=== PATIENT | male | born 1955 | race Caucasian/White ===

== ENCOUNTER 2018-04-11 12:38 | Inpatient (IN) | payer OTHER ==
[~2018-04-11] VITALS: Ht 167.6 cm; Wt 89.2 kg
[2018-04-11] VITALS (7 sets, daily range): BP systolic 155–205; BP diastolic 70–94
--- NOTE | ~2018-04-11 | EKG ---
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
--- NOTE | ~2018-04-11 | EKG ---
[place], [place] ELECTROCARDIOGRAM REPORT NAME: FUNMI RODRIGUEZ UNIT #: [id number] ROOM: [facility] DOCTOR: XAVI DRAFT REPORT BIRTHDATE: [birth year] 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
--- NOTE | ~2018-04-11 | EKG ---
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
[~2018-04-11 12:38] MED LIST: AMOXIL400 MG/5 M PO
[2018-04-11 13:02] LABS: BASO # 0.1 10*3/uL (0.0-0.1); BASO % 0.6 % (0.0-1.0); EOS # 0.1 10*3/uL (0.0-0.4); EOS % 1.5 % (1.0-4.0); HEMATOCRIT 44.5 % (42.0-52.0); LYMPH # 1.9 10*3/uL (1.3-4.4); LYMPH % 22.9 % (27.0-41.0); MEAN CELL VOLUME 86.9 fl (80.0-94.0); MEAN CORPUSCULAR HGB 29.3 pg (27.0-31.0); MEAN CORPUSCULAR HGB CONC 33.7 g/dl (33.0-37.0); MEAN PLATELET VOLUME 9.9 fl (9.6-12.3); MONO # 0.5 10*3/uL (0.1-1.0); MONO % 5.7 % (3.0-9.0); NEUT # 5.6 10*3/uL (2.3-7.9); NEUT % 68.9 % (47.0-73.0); PLATELET COUNT AUTOMATED 212 10*3/uL (130-400); RED BLOOD COUNT 5.12 10*6/uL (4.50-5.90); WHITE BLOOD COUNT 8.1 10*3/uL (4.8-10.8)
[2018-04-11 13:33] LABS: ALBUMIN 3.6 gm/dl (3.1-4.5); ALKALINE PHOSPHATASE 52 U/L (45-117); BUN 17 mg/dl (7-24); CHLORIDE 105 mmol/L (98-107); CREATININE 0.88 mg/dL (0.70-1.30); POTASSIUM 4.1 mmol/L (3.5-5.1); SGOT/AST 8 IU/L (3-35); SGPT/ALT 17 U/L (12-78); SODIUM 140 mmol/L (136-145); TOTAL PROTEIN 7.4 gm/dL (6.4-8.2)
[2018-04-11 13:38] LABS: TROPONIN I < 0.015 ng/ml (<0.045)
[2018-04-11 13:39] LABS: THYROID STIM HORMONE (HS) 0.679 uIU/ml (0.358-4.75)
[2018-04-11] MEDS ORDERED: LISINOPRIL40 MG PO (15:04)
[2018-04-11] MEDS ORDERED: CITALOPRAM10 MG PO (15:05)
[2018-04-11] MEDS ORDERED: METOPROLOL TART50 M1 PO (15:05)
[2018-04-11] MEDS ORDERED: OMEPRAZOLE40 MG PO (15:06)
--- NOTE | 2018-04-11 15:50 | NUR ---
A 62, admitted to 5E, under the services of KAYLI German DO with a diagnosis of HTN EMERGENCY. Chief complaint is HIGH BP, BLURRED VISION. Patient arrived via ambulatory from ER. Monitor applied. Initial assessment completed. Vital signs taken and recorded. KAYLI GERMAN DO notified of admission to the unit. Orders received. See assessment for past medical history, medications and allergies. Patient and/or family oriented to unit. [facility] visitation policy reviewed. Clothing/patient valuable form completed. SANDIE ALEXANDER
[2018-04-11 17:17] LABS: BILIRUBIN NEGATIVE (NEGATIVE); BLOOD NEGATIVE (NEGATIVE); CLARITY SL CLOUDY (CLEAR); COLOR YELLOW (YELLOW); GLUCOSE NEGATIVE (NEGATIVE); KETONE NEGATIVE (NEGATIVE); LEUKO ESTERASE NEGATIVE (NEGATIVE); NITRITE NEGATIVE (NEGATIVE); PH 6.5 (5.0-9.0); UROBILINOGEN 0.2 E.U./dl (0.2-1.0)
[2018-04-11 17:24] LABS: BACTERIA 1+; EPITHELIAL CELLS 0-2; RBC 0-2 rbc/hpf (0-2); WBC 0-2 wbc/hpf (0-5)
--- NOTE | 2018-04-11 17:30 | NUR ---
DR QURESHI MADE AWARE OF UPDATED MED REC.
--- NOTE | 2018-04-11 20:00 | NUR ---
RESTING IN BED WATCHING T.V. VOICES NO C/O AT THIS TIME. DENIES PAIN OR DISCOMFORT. CALL LIGHT WITHIN REACH.
[2018-04-12] VITALS: BP 139/73
--- NOTE | 2018-04-12 | NUR ---
RESTING IN BED WITH EYES CLOSED. CALL LIGHT WITHIN REACH.
[2018-04-12 06:12] LABS: BASO # 0.1 10*3/uL (0.0-0.1); BASO % 0.7 % (0.0-1.0); EOS # 0.2 10*3/uL (0.0-0.4); EOS % 2.3 % (1.0-4.0); HEMATOCRIT 43.1 % (42.0-52.0); HEMOGLOBIN 14.3 g/dl (14.0-18.0); LYMPH % 28.5 % (27.0-41.0); MEAN CELL VOLUME 86.7 fl (80.0-94.0); MEAN CORPUSCULAR HGB 28.8 pg (27.0-31.0); MEAN CORPUSCULAR HGB CONC 33.2 g/dl (33.0-37.0); MEAN PLATELET VOLUME 10.2 fl (9.6-12.3); MONO # 0.5 10*3/uL (0.1-1.0); MONO % 7.1 % (3.0-9.0); NEUT # 4.3 10*3/uL (2.3-7.9); NEUT % 60.8 % (47.0-73.0); PLATELET COUNT AUTOMATED 181 10*3/uL (130-400); RED BLOOD COUNT 4.97 10*6/uL (4.50-5.90); RED CELL DISTRI WIDTH 13.1 % (0-14.5); WHITE BLOOD COUNT 7.1 10*3/uL (4.8-10.8)
[2018-04-12 06:51] LABS: ALBUMIN 3.3 gm/dl (3.1-4.5); ALKALINE PHOSPHATASE 46 U/L (45-117); BUN 17 mg/dl (7-24); CHLORIDE 104 mmol/L (98-107); CHOLESTEROL 190 mg/dL (<200); CREATININE 0.85 mg/dL (0.70-1.30); FREE T4 0.98 ng/dl (0.76-1.46); HDL CHOLESTEROL 45 mg/dl (40-60); LDL CHOLESTEROL 122 mg/dL (9-159); POTASSIUM 3.7 mmol/L (3.5-5.1); SGOT/AST 4 IU/L (3-35); SGPT/ALT 15 U/L (12-78); SODIUM 139 mmol/L (136-145); TOTAL PROTEIN 6.9 gm/dL (6.4-8.2); TRIGLYCERIDES 114 mg/dl (<150); VLDL CHOLESTEROL 23 mg/dL (6-40)
[2018-04-12 07:22] LABS: VITAMIN D, 25-HYDROXY 35.2 ng/mL (30-100)
[2018-04-12 08:00] VITALS: BP 172/88
[2018-04-12 12:00] VITALS: BP 168/90; BP 180/100
--- NOTE | 2018-04-12 15:00 | NUR ---
PT RESTING IN BED, DENIES ANY COMPLAINTS. CALL LIGHT WITHIN REACH.
[2018-04-12 16:00] VITALS: BP 158/100; BP 158/88
[2018-04-12 20:00] VITALS: BP 176/96
--- NOTE | 2018-04-12 20:00 | NUR ---
REPORT OBTAINED FROM DAY SHIFT RN. PT IS SITTING UP IN BED AT THIS TIME AND DENIES ANY PAIN OR DISCOMFORT. HE DENIES ANY NEEDS. INITIAL ASSESSMENT COMPLETED - SEE ASSESSMENT SCREEN. RESPIRATIONS ARE EASY AND NONLABORED ON ROOM AIR. HE IS NSR ON THE MONITOR WITH A HEART RATE IN THE 60'S. BED IS LOCKED AND IN THE LOWEST POSITION, CALL LIGHT IS WITHIN REACH. WILL CONTINUE TO MONITOR PT.
--- NOTE | 2018-04-12 20:06 | NUR ---
DR. Kulwinder EVERETT NOTIFIED OF ELEVATED BP. PT IS ASYMPTOMATIC AT THIS TIME NO NEW ORDERS GIVEN. WILL CONTINUE TO MONITOR.
[2018-04-13] VITALS: BP 164/90
--- NOTE | 2018-04-13 04:33 | NUR ---
24 HR chart check completed.
[2018-04-13 06:23] VITALS: BP 164/98
[2018-04-13 08:00] VITALS: BP 158/90
[2018-04-13] MEDS ORDERED: AMLODIPINE BESY10 MG PO (10:15)
[2018-04-13] MEDS ORDERED: Zestril,Prinivi40 MG PO (10:15)
--- NOTE | 2018-04-13 10:40 | NUR ---
Discharge instructions reviewed with patient/family. Patient receptive and verbalizes understanding. Follow-up care arranged. Written instructions given to patient/family. EPIFANIO LIN
--- NOTE | 2018-04-13 12:11 | NUR ---
Gymnastics Coach in to talk to patient. Patient states lives at HOME with GIRLFRIEND. There are [address] in the home. Physician: JAKI Pharmacy: [facility] Home health services: NONE Patient's level of ADLs: INDEPENDENT Patient has working utilities: YES DME: NONE Follow-up physician's appointment after d/c: WILL BE MADE BY HOSPITALIST NURSE DIRECTOR Does patient want to access PORTAL?: NO Discharge plan PT LIVES WITH GIRLFRIEND AND IS INDEPENDENT IN CARE. DENIES ANY NEEDS. WAITING ON HIS RIDE TO PICK HIM UP HE IS DICAHARGED.. YANE JONES
== END 2018-04-13 10:40 | disposition home or self-care (01) | DRG 305 ==
LOC: ED 12:38 → EDHOLD 14:14 → 5E 14:50
PROVIDERS: Internal Medicine; Nurse Practitioner Family; ADMIT Internal Medicine
DX: I16.1 Hypertensive emergency (principal); R00.1 Bradycardia, unspecified; E80.6 Other disorders of bilirubin metabolism; I10 Essential (primary) hypertension; K21.9 Gastro-esophageal reflux disease without esophagitis; F32.9 Major depressive disorder, single episode, unspecified; D72.810 Lymphocytopenia; R73.9 Hyperglycemia, unspecified; Z88.6 Allergy status to analgesic agent; Z82.49 Family history of ischemic heart disease and other diseases of the circulatory system; Z79.899 Other long term (current) drug therapy

== ENCOUNTER 2018-12-12 07:27 | Inpatient (IN) | payer SELFPAY ==
[2018-12-12] VITALS (7 sets, daily range): BP systolic 132–182; BP diastolic 71–94
[~2018-12-12] VITALS: Ht 175 cm; Wt 88.0 kg
[~2018-12-12 07:27] MED LIST changes: +AMLODIPINE BESY10 MG PO; +CITALOPRAM10 MG PO; +LISINOPRIL40 MG PO; +METOPROLOL TART50 M1 PO; +OMEPRAZOLE40 MG PO; +Zestril,Prinivi40 MG PO
[2018-12-12 07:41] LABS: BILIRUBIN NEGATIVE (NEGATIVE); BLOOD 3+ (NEGATIVE); CLARITY CLEAR (CLEAR); COLOR YELLOW (YELLOW); GLUCOSE NEGATIVE (NEGATIVE); KETONE NEGATIVE (NEGATIVE); LEUKO ESTERASE TRACE (NEGATIVE); NITRITE NEGATIVE (NEGATIVE); SPECIFIC GRAVITY 1.025 (1.005-1.030); UROBILINOGEN 0.2 E.U./dl (0.2-1.0)
[2018-12-12 08:03] LABS: BASO % 0.3 % (0.0-1.0); EOS # 0.1 10*3/uL (0.0-0.4); EOS % 0.4 % (1.0-4.0); HEMATOCRIT 42.9 % (42.0-52.0); HEMOGLOBIN 14.3 g/dl (14.0-18.0); LYMPH # 1.1 10*3/uL (1.3-4.4); LYMPH % 9.6 % (27.0-41.0); MEAN CORPUSCULAR HGB CONC 33.3 g/dl (33.0-37.0); MEAN PLATELET VOLUME 9.2 fl (9.6-12.3); MONO # 0.4 10*3/uL (0.1-1.0); MONO % 3.2 % (3.0-9.0); NEUT # 10.1 10*3/uL (2.3-7.9); NEUT % 85.8 % (47.0-73.0); PLATELET COUNT AUTOMATED 241 10*3/uL (130-400); RED BLOOD COUNT 4.93 10*6/uL (4.50-5.90); RED CELL DISTRI WIDTH 12.7 % (0-14.5); WHITE BLOOD COUNT 11.7 10*3/uL (4.8-10.8)
[2018-12-12 08:15] LABS: BACTERIA 1+; MUCOUS 1+; RBC TNTC rbc/hpf (0-2)
[2018-12-12 08:18] LABS: ALBUMIN 3.6 gm/dl (3.1-4.5); ALKALINE PHOSPHATASE 54 U/L (45-117); BUN 18 mg/dl (7-24); CHLORIDE 107 mmol/L (98-107); CREATININE 0.93 mg/dL (0.70-1.30); LIPASE 102 U/L (73-393); POTASSIUM 3.6 mmol/L (3.5-5.1); SGOT/AST 12 IU/L (3-35); SGPT/ALT 22 U/L (12-78); SODIUM 139 mmol/L (136-145); TOTAL PROTEIN 7.4 gm/dL (6.4-8.2)
--- NOTE | 2018-12-12 08:34 | NUR ---
PT IS RESTING MORE COMFORTABLY NOW. ABDOMINAL PAIN HAS IMPROVED AFTER IV TORADOL. WAITING FOR CAT SCAN RESULT. APARNA RN
--- NOTE | 2018-12-12 10:34 | NUR ---
A 62, admitted to , under the services of RISHABH Palumbo DO with a diagnosis of INTRACTABLE PAIN. URETHROLITHIASIS. Chief complaint is PAIN. Patient arrived via ambulatory from ER. Monitor applied. Initial assessment completed. Vital signs taken and recorded. RISHABH PALUMBO DO notified of admission to the unit. Orders received. See assessment for past medical history, medications and allergies. Patient and/or family oriented to unit. [address] visitation policy reviewed. Clothing/patient valuable form completed. NO WOUNDS RUDDY RAYMOND
--- NOTE | 2018-12-12 10:36 | NUR ---
PT REFUSING FLU VACCINATION
[2018-12-12] MEDS ORDERED: LOSARTAN POTASS50 M1 PO (10:40)
[2018-12-12] MEDS ORDERED: GOOD NEIGHBOR L10 MG PO (10:41)
--- NOTE | 2018-12-12 11:30 | NUR ---
ADMINISTERED IV TORADOL PER ORDER FOR RLQ PAIN RATE 10/10. WILL MONITOR FOR EFFECTIVENESS
--- NOTE | 2018-12-12 12:25 | NUR ---
PT STATES PAIN IS NOW 4/10 AND TOLERABLE.
--- NOTE | 2018-12-12 15:10 | NUR ---
PER PT RLQ PAIN IS NOW 10/10 AGAIN. LON KOCH NOTIFIED.
--- NOTE | 2018-12-12 15:25 | NUR ---
ADMINISTERED PO PERCOCET PER ORDER. WILL MONITOR FOR EFFECTIVENESS. BED LOW
--- NOTE | 2018-12-12 16:30 | NUR ---
PER PT RLQ PAIN IS STILL 8/10. DR TITUS NOTIFIED. ORDER FOR IV DILAUDID 1mg ONE TIME.
--- NOTE | 2018-12-12 17:57 | NUR ---
PT C/O EMESIS. DR TITUS NOTIFIED. ORDER RECEIVED
--- NOTE | 2018-12-12 20:43 | NUR ---
PT CO NAUSEA. MEDICATED WITH PRN ZOFRAN. CALL LIGHT WITHIN REACH. WILL CHECK EFFECTIVENESS.
--- NOTE | 2018-12-12 21:15 | NUR ---
PT STATES ZOFRAN WAS EFFECTIVE. HE IS NO LONGER FEELING NAUSEOUS.
--- NOTE | 2018-12-12 22:34 | NUR ---
PT IS RESTING IN BED. HE SAYS HE NO LONGER FEELS NAUSEOUS. HE SAID HIS PAIN ISN'T BAD RIGHT NOW AND DOES NOT WANT ANYTHING AT THIS TIME. CALL LIGHT WITHIN REACH.
[2018-12-13] VITALS: BP 148/84
--- NOTE | 2018-12-13 02:18 | NUR ---
24 HR CHART CHECK COMPLETE.
--- NOTE | 2018-12-13 02:46 | NUR ---
Patient sleeping. Respirations relaxed and easy. Siderails up . [place] on. No signs of distress. Call light within reach. RASHMI BOWMAN
--- NOTE | 2018-12-13 05:17 | NUR ---
ADMINISTERED PRN PERCOCET FOR RLQ PAIN RATED A 4/10. WILL CHECK EFFECTIVENESS. CALL LIGHT WITHIN REACH.
[2018-12-13 06:20] LABS: BASO % 0.2 % (0.0-1.0); EOS # 0.1 10*3/uL (0.0-0.4); EOS % 1.5 % (1.0-4.0); HEMATOCRIT 37.5 % (42.0-52.0); HEMOGLOBIN 12.5 g/dl (14.0-18.0); LYMPH # 2.1 10*3/uL (1.3-4.4); MEAN CELL VOLUME 87.8 fl (80.0-94.0); MEAN CORPUSCULAR HGB 29.3 pg (27.0-31.0); MEAN CORPUSCULAR HGB CONC 33.3 g/dl (33.0-37.0); MEAN PLATELET VOLUME 9.9 fl (9.6-12.3); MONO # 0.5 10*3/uL (0.1-1.0); MONO % 6.2 % (3.0-9.0); NEUT # 5.3 10*3/uL (2.3-7.9); NEUT % 65.7 % (47.0-73.0); PLATELET COUNT AUTOMATED 210 10*3/uL (130-400); RED BLOOD COUNT 4.27 10*6/uL (4.50-5.90); RED CELL DISTRI WIDTH 12.9 % (0-14.5); WHITE BLOOD COUNT 8.1 10*3/uL (4.8-10.8)
[2018-12-13 06:31] LABS: ALBUMIN 3.2 gm/dl (3.1-4.5); ALKALINE PHOSPHATASE 49 U/L (45-117); BUN 14 mg/dl (7-24); CHLORIDE 105 mmol/L (98-107); CHOLESTEROL 180 mg/dL (<200); CREATININE 0.82 mg/dL (0.70-1.30); FREE T4 0.88 ng/dl (0.76-1.46); HDL CHOLESTEROL 40 mg/dl (40-60); LDL CHOLESTEROL 120 mg/dL (9-159); PHOSPHOROUS 3.5 mg/dL (2.5-4.9); POTASSIUM 3.4 mmol/L (3.5-5.1); SGOT/AST 6 IU/L (3-35); SGPT/ALT 18 U/L (12-78); SODIUM 138 mmol/L (136-145); TOTAL PROTEIN 6.4 gm/dL (6.4-8.2); TRIGLYCERIDES 100 mg/dl (<150); VLDL CHOLESTEROL 20 mg/dL (6-40)
[2018-12-13 06:36] LABS: THYROID STIM HORMONE (HS) 0.839 uIU/ml (0.358-4.75)
[2018-12-13 07:52] LABS: PTH INTACT 54.3 pg/mL (18.5-88.0); VITAMIN D, 25-HYDROXY 29.8 ng/mL (30-100)
[2018-12-13 08:00] VITALS: BP 129/75
[2018-12-13] MEDS ORDERED: NORCO 5-325 TA1 EACH PO (08:02)
[2018-12-13] MEDS ORDERED: TAMSULOSIN HCL0.4 MG PO (08:02)
--- NOTE | 2018-12-13 09:58 | NUR ---
Discharge instructions reviewed with patient/family. Patient receptive and verbalizes understanding. Follow-up care arranged. Written instructions given to patient/family. MARIA DE JESUS MONTANEZ
== END 2018-12-13 09:58 | disposition home or self-care (01) | DRG 694 ==
LOC: ED 07:27 → EDHOLD 09:46 → 4E 10:29
PROVIDERS: Emergency Medicine; Registered Nurse; ADMIT Internal Medicine
DX: N13.2 Hydronephrosis with renal and ureteral calculous obstruction (principal); E44.0 Moderate protein-calorie malnutrition; I10 Essential (primary) hypertension; F32.9 Major depressive disorder, single episode, unspecified; K21.9 Gastro-esophageal reflux disease without esophagitis; N40.0 Benign prostatic hyperplasia without lower urinary tract symptoms; R31.9 Hematuria, unspecified; R82.71 Bacteriuria; R00.1 Bradycardia, unspecified; D72.829 Elevated white blood cell count, unspecified; D64.9 Anemia, unspecified; R73.03 Prediabetes; E55.9 Vitamin D deficiency, unspecified; Z82.49 Family history of ischemic heart disease and other diseases of the circulatory system; Z88.6 Allergy status to analgesic agent; Z79.899 Other long term (current) drug therapy; Z68.28 Body mass index [BMI] 28.0-28.9, adult

== ENCOUNTER → 2019-12-24 | Outpatient (CLI) | payer MEDICARE ==
[~2019-12-24] MED LIST changes: +GOOD NEIGHBOR L10 MG PO; +LOSARTAN POTASS50 M1 PO; +NORCO 5-325 TA1 EACH PO; +TAMSULOSIN HCL0.4 MG PO
[2019-12-24 13:48] LABS: BILIRUBIN Negative (Negative); BLOOD Negative (Negative); CLARITY Clear (Clear); COLOR Yellow (Yellow); GLUCOSE Negative (Negative); KETONE Negative (Negative); LEUKO ESTERASE Trace (Negative); NITRITE Negative (Negative); PH 5.5 (4.5-8.0)
[2019-12-24 13:49] LABS: BASO % 0.5 % (0.0-1.0); EOS # 0.1 10*3/uL (0.0-0.4); EOS % 2.3 % (1.0-4.0); HEMATOCRIT 41.9 % (42.0-52.0); LYMPH % 31.6 % (27.0-41.0); MEAN CELL VOLUME 87.3 fl (80.0-94.0); MEAN CORPUSCULAR HGB 29.2 pg (27.0-31.0); MEAN CORPUSCULAR HGB CONC 33.4 g/dl (33.0-37.0); MEAN PLATELET VOLUME 9.2 fl (9.6-12.3); MONO # 0.4 10*3/uL (0.1-1.0); NEUT # 3.7 10*3/uL (2.3-7.9); NEUT % 59.3 % (47.0-73.0); PLATELET COUNT AUTOMATED 247 10*3/uL (130-400); RED CELL DISTRI WIDTH 12.9 % (0-14.5); RETICULOCYTE % 0.91 % (0.50-2.50); WHITE BLOOD COUNT 6.2 10*3/uL (4.8-10.8)
[2019-12-24 13:54] LABS: BACTERIA TRACE; EPITHELIAL CELLS 0-2; MUCOUS 2+
[2019-12-24 14:27] LABS: FERRITIN 76.7 ng/mL (22.0-322.0); VITAMIN D, 25-HYDROXY 39.7 ng/mL (30-100)
[2019-12-24 18:39] LABS: BUN 12 mg/dl (7-24); CHLORIDE 104 mmol/L (98-107); CREATININE 0.79 mg/dL (0.70-1.30); SODIUM 140 mmol/L (136-145)
[2019-12-24 18:40] LABS: CHOLESTEROL 231 mg/dL (<200)
[2019-12-24 18:41] LABS: HDL CHOLESTEROL 53 mg/dl (40-60); LDL CHOLESTEROL 149 mg/dL (9-159); TOTAL PROTEIN 7.5 gm/dL (6.4-8.2); TRIGLYCERIDES 144 mg/dl (<150); VLDL CHOLESTEROL 29 mg/dL (6-40)
[2019-12-24 18:42] LABS: ALBUMIN 3.9 gm/dl (3.1-4.5); ALKALINE PHOSPHATASE 49 U/L (45-117); GAMMA GLUTAMYL TRANSPEPTIDASE 23 U/L (15-85); IRON 115 ug/dL (65-175); SGOT/AST 7 IU/L (3-35); SGPT/ALT 20 U/L (12-78); THYROID STIM HORMONE (HS) 0.579 uIU/ml (0.358-4.75); TOTAL IRON BINDING CAPACITY 348 ug/dl (250-450)
== END | disposition home or self-care (01) ==
LOC: LAB 13:19
PROVIDERS: ATTEND Family Medicine
DX: Z12.5 Encounter for screening for malignant neoplasm of prostate (principal); R79.89 Other specified abnormal findings of blood chemistry; R53.83 Other fatigue; E78.5 Hyperlipidemia, unspecified; E55.9 Vitamin D deficiency, unspecified; R74.8 Abnormal levels of other serum enzymes

== ENCOUNTER 2020-03-21 16:43 | Emergency (ER) | payer MEDICARE ==
[~2020-03-21] VITALS: Ht 167.6 cm; Wt 90.7 kg
== END 2020-03-21 19:46 | disposition home or self-care (01) ==
LOC: ED 16:43
DX: S83.91XA Sprain of unspecified site of right knee, initial encounter (principal); I10 Essential (primary) hypertension; K21.9 Gastro-esophageal reflux disease without esophagitis; Z88.5 Allergy status to narcotic agent; Z79.899 Other long term (current) drug therapy; X58.XXXA Exposure to other specified factors, initial encounter; Y92.89 Other specified places as the place of occurrence of the external cause; Y93.01 Activity, walking, marching and hiking; Y99.8 Other external cause status

== ENCOUNTER 2021-03-17 08:58 | Inpatient (IN) | payer MEDICARE ==
[~2021-03-17] VITALS: Ht 167.6 cm; Wt 89.5 kg
[2021-03-17 09:02] VITALS: BP 147/92
[2021-03-17 09:40] LABS: BASO % 0.3 % (0.0-1.0); EOS % 0.6 % (1.0-4.0); HEMATOCRIT 42.8 % (42.0-52.0); LYMPH # 1.3 10*3/uL (1.3-4.4); LYMPH % 18.3 % (27.0-41.0); MEAN CELL VOLUME 84.3 fl (80.0-94.0); MEAN CORPUSCULAR HGB 28.5 pg (27.0-31.0); MEAN CORPUSCULAR HGB CONC 33.9 g/dl (33.0-37.0); MONO # 0.4 10*3/uL (0.1-1.0); MONO % 5.8 % (3.0-9.0); NEUT # 5.1 10*3/uL (2.3-7.9); NEUT % 74.4 % (47.0-73.0); PLATELET COUNT AUTOMATED 219 10*3/uL (130-400); RED BLOOD COUNT 5.08 10*6/uL (4.50-5.90); RED CELL DISTRI WIDTH 12.8 % (0-14.5); WHITE BLOOD COUNT 6.8 10*3/uL (4.8-10.8)
[2021-03-17 09:58] LABS: ALBUMIN 3.7 gm/dl (3.1-4.5); ALKALINE PHOSPHATASE 56 U/L (45-117); BUN 8 mg/dl (7-24); CHLORIDE 108 mmol/L (98-107); CREATININE 0.77 mg/dL (0.70-1.30); LIPASE 62 U/L (73-393); POTASSIUM 3.8 mmol/L (3.5-5.1); SGOT/AST 8 IU/L (3-35); SGPT/ALT 19 U/L (12-78); SODIUM 141 mmol/L (136-145); TOTAL PROTEIN 7.6 gm/dL (6.4-8.2)
[2021-03-17 11:19] LABS: BILIRUBIN Negative (Negative); BLOOD Negative (Negative); CLARITY Clear (Clear); COLOR Yellow (Yellow); GLUCOSE Negative (Negative); KETONE Negative (Negative); LEUKO ESTERASE Negative (Negative); NITRITE Negative (Negative); SPECIFIC GRAVITY >= 1.030 (1.001-1.030)
[2021-03-17 11:32] LABS: MUCOUS 2+
[2021-03-17 11:33] LABS: BACTERIA 1+; RBC 0-2 rbc/hpf (0-2)
[2021-03-17 12:00] VITALS: BP 148/94
[2021-03-17 16:00] VITALS: BP 165/97
[2021-03-17 20:00] VITALS: BP 144/85
[2021-03-18] VITALS: BP 147/89
[2021-03-18 06:55] LABS: BASO % 0.3 % (0.0-1.0); EOS # 0.2 10*3/uL (0.0-0.4); HEMATOCRIT 39.9 % (42.0-52.0); LYMPH # 1.4 10*3/uL (1.3-4.4); LYMPH % 17.7 % (27.0-41.0); MEAN CELL VOLUME 86.4 fl (80.0-94.0); MEAN CORPUSCULAR HGB 28.6 pg (27.0-31.0); MEAN CORPUSCULAR HGB CONC 33.1 g/dl (33.0-37.0); MEAN PLATELET VOLUME 9.1 fl (9.6-12.3); MONO # 0.5 10*3/uL (0.1-1.0); MONO % 5.9 % (3.0-9.0); NEUT # 5.9 10*3/uL (2.3-7.9); NEUT % 73.7 % (47.0-73.0); PLATELET COUNT AUTOMATED 185 10*3/uL (130-400); RED BLOOD COUNT 4.62 10*6/uL (4.50-5.90); RED CELL DISTRI WIDTH 13.1 % (0-14.5); WHITE BLOOD COUNT 7.9 10*3/uL (4.8-10.8)
[2021-03-18 07:02] LABS: ACT PARTIAL THROMBO TIME 26.8 SECONDS (20.0-32.1)
[2021-03-18 07:06] LABS: ALKALINE PHOSPHATASE 53 U/L (45-117); BUN 8 mg/dl (7-24); CHLORIDE 107 mmol/L (98-107); CHOLESTEROL 189 mg/dL (<200); CREATININE 0.73 mg/dL (0.70-1.30); LDL CHOLESTEROL 116 mg/dL (9-159); POTASSIUM 3.8 mmol/L (3.5-5.1); SGOT/AST 10 IU/L (3-35); SGPT/ALT 17 U/L (12-78); SODIUM 140 mmol/L (136-145); TOTAL PROTEIN 6.6 gm/dL (6.4-8.2); TRIGLYCERIDES 151 mg/dl (<150)
[2021-03-18 07:12] LABS: FREE T4 0.95 ng/dl (0.76-1.46)
[2021-03-18 08:00] VITALS: BP 150/86
[2021-03-18 12:00] VITALS: BP 148/94
[2021-03-18 16:00] VITALS: BP 144/83
[2021-03-18 20:00] VITALS: BP 145/85
[2021-03-19] VITALS (10 sets, daily range): BP systolic 121–167; BP diastolic 73–96
[2021-03-19 06:28] LABS: BASO % 0.4 % (0.0-1.0); EOS # 0.2 10*3/uL (0.0-0.4); EOS % 3.2 % (1.0-4.0); HEMATOCRIT 37.2 % (42.0-52.0); LYMPH # 1.2 10*3/uL (1.3-4.4); LYMPH % 24.7 % (27.0-41.0); MEAN CELL VOLUME 86.5 fl (80.0-94.0); MEAN CORPUSCULAR HGB 28.4 pg (27.0-31.0); MEAN CORPUSCULAR HGB CONC 32.8 g/dl (33.0-37.0); MEAN PLATELET VOLUME 9.5 fl (9.6-12.3); MONO # 0.3 10*3/uL (0.1-1.0); MONO % 7.2 % (3.0-9.0); NEUT % 63.9 % (47.0-73.0); PLATELET COUNT AUTOMATED 172 10*3/uL (130-400); RED CELL DISTRI WIDTH 12.7 % (0-14.5); WHITE BLOOD COUNT 4.7 10*3/uL (4.8-10.8)
[2021-03-19 06:34] LABS: BUN 11 mg/dl (7-24); CHLORIDE 110 mmol/L (98-107); POTASSIUM 3.4 mmol/L (3.5-5.1); SODIUM 141 mmol/L (136-145)
[2021-03-20] VITALS: BP 155/91
[2021-03-20 07:45] VITALS: BP 160/70
[2021-03-20] MEDS ORDERED: HYDROCODONE-AC1 EAC1 PO (07:58)
[2021-03-20] MEDS ORDERED: COLACE100 MG PO (07:58)
== END 2021-03-20 09:59 | disposition home or self-care (01) | DRG 418 ==
LOC: ED 08:58 → 5E 15:32 → EDHOLD 15:32 → 5E 15:47
PROVIDERS: Emergency Medicine; Internal Medicine; ADMIT Student in an Organized Health Care Education/Training Program; ATTEND Student in an Organized Health Care Education/Training Program
PROC: 0FT44ZZ Resection of Gallbladder, Percutaneous Endoscopic Approach (ICD-10-PCS; principal; 2021-03-19)
PROC: 3E0T3BZ Introduction of Anesthetic Agent into Peripheral Nerves and Plexi, Percutaneous Approach (ICD-10-PCS; 2021-03-19)
PROC: 3E0T33Z Introduction of Anti-inflammatory into Peripheral Nerves and Plexi, Percutaneous Approach (ICD-10-PCS; 2021-03-19)
DX: K80.00 Calculus of gallbladder with acute cholecystitis without obstruction (principal); E44.0 Moderate protein-calorie malnutrition; K76.0 Fatty (change of) liver, not elsewhere classified; K21.9 Gastro-esophageal reflux disease without esophagitis; I10 Essential (primary) hypertension; R73.9 Hyperglycemia, unspecified; E66.9 Obesity, unspecified; E87.8 Other disorders of electrolyte and fluid balance, not elsewhere classified; K44.9 Diaphragmatic hernia without obstruction or gangrene; Z88.5 Allergy status to narcotic agent; Z82.49 Family history of ischemic heart disease and other diseases of the circulatory system; Z79.899 Other long term (current) drug therapy; Z68.31 Body mass index [BMI] 31.0-31.9, adult

== ENCOUNTER → 2021-04-06 | Outpatient (CLI) | payer MEDICARE ==
[~2021-04-06] MED LIST changes: +CARVEDILOL6.25 MG PO; +CITALOPRAM20 MG PO; +COLACE100 MG PO; +HYDROCODONE-AC1 EAC1 PO
== END | disposition home or self-care (01) ==
LOC: RAD 12:41
PROVIDERS: ATTEND Internal Medicine
DX: J90 Pleural effusion, not elsewhere classified (principal); R06.02 Shortness of breath; I70.0 Atherosclerosis of aorta; I51.7 Cardiomegaly; M85.80 Other specified disorders of bone density and structure, unspecified site

== ENCOUNTER → 2021-04-25 | Outpatient (CLI) | payer MEDICARE ==
[2021-04-25 15:19] LABS: CREATININE 0.73 mg/dL (0.70-1.30)
== END | disposition home or self-care (01) ==
LOC: LAB 14:26
PROVIDERS: ATTEND Surgery
DX: R10.9 Unspecified abdominal pain (principal)

== ENCOUNTER → 2021-05-04 | Outpatient (CLI) | payer MEDICARE | END | disposition home or self-care (01) | LOC: CT 00:23 → MRI 10:00 | PROVIDERS: ATTEND Nurse Practitioner Family | DX: S43.432A Superior glenoid labrum lesion of left shoulder, initial encounter (principal); S46.812A Strain of other muscles, fascia and tendons at shoulder and upper arm level, left arm, initial encounter; M19.012 Primary osteoarthritis, left shoulder; M75.82 Other shoulder lesions, left shoulder; N40.0 Benign prostatic hyperplasia without lower urinary tract symptoms; N20.0 Calculus of kidney; J98.11 Atelectasis; K44.9 Diaphragmatic hernia without obstruction or gangrene; K57.30 Diverticulosis of large intestine without perforation or abscess without bleeding; X58.XXXA Exposure to other specified factors, initial encounter; Y93.89 Activity, other specified; Y92.89 Other specified places as the place of occurrence of the external cause; Y99.8 Other external cause status; Z90.49 Acquired absence of other specified parts of digestive tract ==

== ENCOUNTER → 2021-05-15 | Outpatient (CLI) | payer MEDICARE | END | disposition home or self-care (01) | LOC: RESCLI 01:21 | PROVIDERS: Hospitalist; ATTEND Student in an Organized Health Care Education/Training Program | DX: Z12.5 Encounter for screening for malignant neoplasm of prostate (principal); I10 Essential (primary) hypertension; E55.9 Vitamin D deficiency, unspecified; N40.1 Benign prostatic hyperplasia with lower urinary tract symptoms; K21.9 Gastro-esophageal reflux disease without esophagitis; F33.9 Major depressive disorder, recurrent, unspecified; R39.14 Feeling of incomplete bladder emptying; Z79.899 Other long term (current) drug therapy; Z86.711 Personal history of pulmonary embolism; Z90.49 Acquired absence of other specified parts of digestive tract ==

== ENCOUNTER → 2021-07-04 | Outpatient (CLI) | payer MEDICARE ==
[2021-07-04 15:49] LABS: ALKALINE PHOSPHATASE 49 U/L (45-117); BUN 11 mg/dl (7-24); CHLORIDE 108 mmol/L (98-107); CREATININE 0.72 mg/dL (0.70-1.30); POTASSIUM 3.7 mmol/L (3.5-5.1); SGOT/AST 5 IU/L (3-35); SGPT/ALT 17 U/L (12-78); SODIUM 140 mmol/L (136-145)
== END | disposition home or self-care (01) ==
LOC: LAB 15:15
PROVIDERS: ATTEND Orthopaedic Surgery
DX: Z79.01 Long term (current) use of anticoagulants (principal)

== ENCOUNTER 2021-07-13 07:47 | Inpatient (IN) | payer MEDICARE ==
[2021-07-13] VITALS (7 sets, daily range): BP systolic 148–170; BP diastolic 88–100
[~2021-07-13] VITALS: Ht 162.5 cm; Wt 91.3 kg
[2021-07-13 08:40] LABS: BASO % 0.5 % (0.0-1.0); EOS % 0.7 % (1.0-4.0); HEMATOCRIT 42.3 % (42.0-52.0); LYMPH % 23.5 % (27.0-41.0); MEAN CELL VOLUME 83.4 fl (80.0-94.0); MEAN CORPUSCULAR HGB 28.4 pg (27.0-31.0); MEAN PLATELET VOLUME 9.3 fl (9.6-12.3); MONO # 0.3 10*3/uL (0.1-1.0); MONO % 5.7 % (3.0-9.0); NEUT % 68.7 % (47.0-73.0); PLATELET COUNT AUTOMATED 280 10*3/uL (130-400); RED BLOOD COUNT 5.07 10*6/uL (4.50-5.90); WHITE BLOOD COUNT 4.4 10*3/uL (4.8-10.8)
[2021-07-13 09:26] LABS: ACT PARTIAL THROMBO TIME 28.8 SECONDS (20.0-32.1)
[2021-07-13 09:35] LABS: ALKALINE PHOSPHATASE 51 U/L (45-117); BUN 9 mg/dl (7-24); CHLORIDE 106 mmol/L (98-107); CREATININE 0.71 mg/dL (0.70-1.30); POTASSIUM 3.7 mmol/L (3.5-5.1); SGOT/AST 13 IU/L (3-35); SGPT/ALT 17 U/L (12-78); SODIUM 140 mmol/L (136-145); TOTAL PROTEIN 7.6 gm/dL (6.4-8.2)
[2021-07-14] VITALS: BP 138/85
[2021-07-14 04:00] VITALS: BP 140/66
[2021-07-14 08:00] VITALS: BP 154/87
[2021-07-14 12:00] VITALS: BP 148/92
[2021-07-14 16:00] VITALS: BP 139/88
[2021-07-14 20:00] VITALS: BP 159/97
[2021-07-15] VITALS: BP 150/83
[2021-07-15 08:00] VITALS: BP 137/75
[2021-07-15] MEDS ORDERED: XARE20MG PO (10:02)
[2021-07-15 12:00] VITALS: BP 154/97
== END 2021-07-15 13:50 | disposition home or self-care (01) | DRG 897 ==
LOC: ED 07:47 → EDHOLD 09:15 → 4E 09:15 → EDHOLD 09:26 → 4E 10:03
PROVIDERS: Emergency Medicine; ADMIT Internal Medicine; ATTEND Internal Medicine
DX: F10.230 Alcohol dependence with withdrawal, uncomplicated (principal); F33.9 Major depressive disorder, recurrent, unspecified; K76.0 Fatty (change of) liver, not elsewhere classified; R73.9 Hyperglycemia, unspecified; E83.41 Hypermagnesemia; I10 Essential (primary) hypertension; K21.9 Gastro-esophageal reflux disease without esophagitis; R73.03 Prediabetes; N40.0 Benign prostatic hyperplasia without lower urinary tract symptoms; Z86.711 Personal history of pulmonary embolism; Z82.49 Family history of ischemic heart disease and other diseases of the circulatory system; Z88.5 Allergy status to narcotic agent; Z88.6 Allergy status to analgesic agent; Z79.899 Other long term (current) drug therapy; Z79.1 Long term (current) use of non-steroidal anti-inflammatories (NSAID)

== ENCOUNTER → 2021-09-24 | Outpatient (CLI) | payer MEDICARE ==
[~2021-09-24] MED LIST changes: +XARE20MG PO
== END | disposition home or self-care (01) ==
LOC: RESCLI 01:11
PROVIDERS: ATTEND Internal Medicine
DX: M19.90 Unspecified osteoarthritis, unspecified site (principal); I10 Essential (primary) hypertension; F33.9 Major depressive disorder, recurrent, unspecified; Z86.711 Personal history of pulmonary embolism; K21.9 Gastro-esophageal reflux disease without esophagitis; G47.30 Sleep apnea, unspecified; Z79.899 Other long term (current) drug therapy; Z79.01 Long term (current) use of anticoagulants; Z90.49 Acquired absence of other specified parts of digestive tract

== ENCOUNTER → 2022-01-09 | Outpatient (CLI) | payer MEDICARE | END | disposition home or self-care (01) | LOC: RESCLI 14:36 | PROVIDERS: ATTEND Internal Medicine | DX: M19.90 Unspecified osteoarthritis, unspecified site (principal); F33.9 Major depressive disorder, recurrent, unspecified; K21.9 Gastro-esophageal reflux disease without esophagitis; I10 Essential (primary) hypertension; E55.9 Vitamin D deficiency, unspecified; Z86.711 Personal history of pulmonary embolism ==

== ENCOUNTER → 2022-04-22 | Outpatient (CLI) | payer MEDICARE | END | disposition home or self-care (01) | LOC: RESCLI 00:42 | PROVIDERS: ATTEND Internal Medicine | DX: I10 Essential (primary) hypertension (principal); K21.9 Gastro-esophageal reflux disease without esophagitis; E55.9 Vitamin D deficiency, unspecified; F33.9 Major depressive disorder, recurrent, unspecified; E78.2 Mixed hyperlipidemia; R42 Dizziness and giddiness; M19.90 Unspecified osteoarthritis, unspecified site; Z88.5 Allergy status to narcotic agent; Z90.49 Acquired absence of other specified parts of digestive tract; Z98.890 Other specified postprocedural states; Z82.49 Family history of ischemic heart disease and other diseases of the circulatory system; F10.90 Alcohol use, unspecified, uncomplicated; Z79.899 Other long term (current) drug therapy ==

== ENCOUNTER → 2022-06-03 | Outpatient (CLI) | payer MEDICARE | END | disposition home or self-care (01) | LOC: RESCLI 01:40 | PROVIDERS: ATTEND Student in an Organized Health Care Education/Training Program | DX: E55.9 Vitamin D deficiency, unspecified (principal); K21.9 Gastro-esophageal reflux disease without esophagitis; M19.90 Unspecified osteoarthritis, unspecified site; I10 Essential (primary) hypertension; F33.9 Major depressive disorder, recurrent, unspecified; E78.2 Mixed hyperlipidemia; R42 Dizziness and giddiness; Z88.5 Allergy status to narcotic agent; Z98.890 Other specified postprocedural states; Z90.49 Acquired absence of other specified parts of digestive tract; Z79.899 Other long term (current) drug therapy ==

== ENCOUNTER → 2022-08-16 | Outpatient (CLI) | payer MEDICARE ==
[~2022-08-16] MED LIST changes: +CIPROFLOXACIN500 M4 PO
== END | disposition home or self-care (01) ==
LOC: RESCLI 00:23
PROVIDERS: ATTEND Internal Medicine
DX: I10 Essential (primary) hypertension (principal); E78.2 Mixed hyperlipidemia; E55.9 Vitamin D deficiency, unspecified; R42 Dizziness and giddiness; F33.9 Major depressive disorder, recurrent, unspecified; K21.9 Gastro-esophageal reflux disease without esophagitis; G47.30 Sleep apnea, unspecified; M19.90 Unspecified osteoarthritis, unspecified site; Z79.899 Other long term (current) drug therapy; Z88.8 Allergy status to other drugs, medicaments and biological substances

== ENCOUNTER → 2023-09-11 | Outpatient (CLI) | payer OTHER | END | disposition home or self-care (01) | LOC: US 07:24 | PROVIDERS: ATTEND Nurse Practitioner Family | DX: N20.0 Calculus of kidney (principal); K76.0 Fatty (change of) liver, not elsewhere classified; I10 Essential (primary) hypertension; Z90.49 Acquired absence of other specified parts of digestive tract ==

== ENCOUNTER → 2023-10-06 | Day surgery (SDC) | payer OTHER ==
[~2023-10-06] VITALS: Ht 175.2 cm; Wt 90.7 kg
[~2023-10-06] MED LIST changes: +Lactated Ringer's Solution 1,000 ML IV ONE; +Lactated Ringer's Solution 1,000 ML IV SCH; +Lidocaine Hydrochloride 2% 5 ML SDV IM ONE; +PROPOFOL 200 MG/20 ML VIAL IV ONE
[2023-10-06 10:30] VITALS: BP 148/89
[2023-10-06 12:22] VITALS: BP 139/88
[2023-10-06 12:37] VITALS: BP 134/86
== END | disposition home or self-care (01) ==
LOC: SDC 09-25 11:00
PROVIDERS: ATTEND Surgery
DX: K59.00 Constipation, unspecified (principal); D12.2 Benign neoplasm of ascending colon; D12.4 Benign neoplasm of descending colon; D12.5 Benign neoplasm of sigmoid colon; K63.5 Polyp of colon; K57.30 Diverticulosis of large intestine without perforation or abscess without bleeding; K21.9 Gastro-esophageal reflux disease without esophagitis; I10 Essential (primary) hypertension; E78.00 Pure hypercholesterolemia, unspecified; F41.9 Anxiety disorder, unspecified; F31.9 Bipolar disorder, unspecified; G47.33 Obstructive sleep apnea (adult) (pediatric); F10.90 Alcohol use, unspecified, uncomplicated; Z86.010 Personal history of colon polyps; Z90.49 Acquired absence of other specified parts of digestive tract; Z98.890 Other specified postprocedural states; Z79.899 Other long term (current) drug therapy; Z88.0 Allergy status to penicillin; Z88.5 Allergy status to narcotic agent; Z83.3 Family history of diabetes mellitus; Z82.49 Family history of ischemic heart disease and other diseases of the circulatory system

== ENCOUNTER → 2024-01-26 | Outpatient (CLI) | payer OTHER ==
[~2024-01-26] MED LIST changes: -Lactated Ringer's Solution 1,000 ML IV ONE; -Lactated Ringer's Solution 1,000 ML IV SCH; -Lidocaine Hydrochloride 2% 5 ML SDV IM ONE; -PROPOFOL 200 MG/20 ML VIAL IV ONE
[2024-01-26 15:20] LABS: BASO # 0.1 10*3/uL (0.0-0.1); BASO % 0.7 % (0.0-1.0); EOS # 0.2 10*3/uL (0.0-0.4); EOS % 3.3 % (1.0-4.0); HEMATOCRIT 46.5 % (42.0-52.0); MEAN CELL VOLUME 86.4 fl (80.0-94.0); MEAN CORPUSCULAR HGB 27.9 pg (27.0-31.0); MEAN CORPUSCULAR HGB CONC 32.3 g/dl (33.0-37.0); MEAN PLATELET VOLUME 9.5 fl (9.6-12.3); MONO # 0.5 10*3/uL (0.1-1.0); MONO % 6.7 % (3.0-9.0); NEUT # 4.6 10*3/uL (2.3-7.9); NEUT % 63.2 % (47.0-73.0); PLATELET COUNT AUTOMATED 227 10*3/uL (130-400); RED BLOOD COUNT 5.38 10*6/uL (4.50-5.90); RED CELL DISTRI WIDTH 12.9 % (0-14.5); WHITE BLOOD COUNT 7.3 10*3/uL (4.8-10.8)
[2024-01-26 15:41] LABS: ALKALINE PHOSPHATASE 61 U/L (46-116); BUN 13 mg/dl (9-23); CHLORIDE 104 mmol/L (98-107); SGPT/ALT 18 U/L (5-49); TOTAL PROTEIN 7.5 gm/dL (6.0-8.0)
== END | disposition home or self-care (01) ==
LOC: LAB 14:44
PROVIDERS: ATTEND Nurse Practitioner Family
DX: R06.00 Dyspnea, unspecified (principal); M79.89 Other specified soft tissue disorders

== ENCOUNTER 2024-04-05 11:04 | Inpatient (IN) | payer OTHER ==
[~2024-04-05] VITALS: Ht 167.6 cm; Wt 114.8 kg
[2024-04-05] VITALS (8 sets, daily range): BP systolic 107–136; BP diastolic 70–112
[~2024-04-05 11:04] MED LIST changes: -ALDACTONE25 MG PO; -ATORVASTATIN CA40 M1 PO; -BUMETANIDE2 MG PO; -DILTIAZEM HCL120 M2 PO; -ELIQUIS5 M1 PO; -LOSARTAN POTAS100 M1 PO; -METOPROLOL SUC100 M1 PO; -OLANZAPINE5 MG PO; -SILDENAFIL CITR50 MG PO
[2024-04-05] MEDS ORDERED: dilTIAZem Hydrochloride 25 MG/5 ML VIAL IV ONE (11:25)
[2024-04-05 11:45] LABS: BASO % 0.5 % (0.0-1.0); EOS # 0.2 10*3/uL (0.0-0.4); EOS % 2.4 % (1.0-4.0); HEMATOCRIT 44.6 % (42.0-52.0); MEAN CELL VOLUME 84.8 fl (80.0-94.0); MEAN CORPUSCULAR HGB CONC 31.8 g/dl (33.0-37.0); MEAN PLATELET VOLUME 9.4 fl (9.6-12.3); MONO # 0.5 10*3/uL (0.1-1.0); MONO % 6.5 % (3.0-9.0); NEUT # 5.6 10*3/uL (2.3-7.9); NEUT % 70.1 % (47.0-73.0); PLATELET COUNT AUTOMATED 306 10*3/uL (130-400); RED BLOOD COUNT 5.26 10*6/uL (4.50-5.90); RED CELL DISTRI WIDTH 13.3 % (0-14.5)
[2024-04-05] MEDS ORDERED: ELIQUIS5 M1 PO (12:03)
[2024-04-05] MEDS ORDERED: BUMETANIDE2 MG PO (12:03)
[2024-04-05] MEDS ORDERED: LOSARTAN POTAS100 M1 PO (12:05)
[2024-04-05] MEDS ORDERED: ALDACTONE25 MG PO (12:05)
[2024-04-05] MEDS ORDERED: dilTIAZem Hydrochloride 100 ML IV ONE (12:05)
[2024-04-05] MEDS ORDERED: METOPROLOL SUC100 M1 PO (12:06)
[2024-04-05] MEDS ORDERED: ATORVASTATIN CA40 M1 PO (12:06)
[2024-04-05] MEDS ORDERED: SILDENAFIL CITR50 MG PO (12:07)
[2024-04-05] MEDS ORDERED: OLANZAPINE5 MG PO (12:07)
[2024-04-05] MEDS ORDERED: dilTIAZem Hydrochloride 100 ML IV SCH (12:10)
[2024-04-05 12:15] LABS: ALKALINE PHOSPHATASE 67 U/L (46-116); BUN 17 mg/dl (9-23); CHLORIDE 103 mmol/L (98-107); POTASSIUM 3.8 mmol/L (3.4-5.1); SGPT/ALT 20 U/L (5-49); TOTAL PROTEIN 7.3 gm/dL (6.0-8.0)
[2024-04-05] MEDS ORDERED: BISACODYL 5 MG TAB PO PRN (15:00)
[2024-04-05] MEDS ORDERED: BISACODYL 10 MG SUPP R PRN (15:00)
[2024-04-05] MEDS ORDERED: Magnesium Hydroxide 30 ML UDC PO PRN (15:00)
[2024-04-05] MEDS ORDERED: METOPROLOL SUCCINATE XR 100 MG TAB PO SCH (22:00)
[2024-04-05] MEDS ORDERED: APIXABAN 5 MG TAB PO SCH (22:00)
[2024-04-05] MEDS ORDERED: ZOLPIDEM TARTRATE 5 MG TAB PO PRN (22:00)
[2024-04-06 02:00] VITALS: BP 122/73
[2024-04-06 04:16] VITALS: BP 117/67
[2024-04-06] MEDS ORDERED: Pantoprazole Sodium 40 MG TAB PO SCH (06:00)
[2024-04-06 06:57] LABS: BASO # 0.1 10*3/uL (0.0-0.1); BASO % 0.7 % (0.0-1.0); EOS # 0.3 10*3/uL (0.0-0.4); EOS % 3.6 % (1.0-4.0); HEMATOCRIT 43.6 % (42.0-52.0); MEAN CORPUSCULAR HGB 27.6 pg (27.0-31.0); MEAN CORPUSCULAR HGB CONC 32.8 g/dl (33.0-37.0); MEAN PLATELET VOLUME 9.7 fl (9.6-12.3); MONO # 0.5 10*3/uL (0.1-1.0); MONO % 6.3 % (3.0-9.0); NEUT # 5.2 10*3/uL (2.3-7.9); NEUT % 69.7 % (47.0-73.0); PLATELET COUNT AUTOMATED 268 10*3/uL (130-400); RED BLOOD COUNT 5.19 10*6/uL (4.50-5.90); RED CELL DISTRI WIDTH 13.5 % (0-14.5); WHITE BLOOD COUNT 7.4 10*3/uL (4.8-10.8)
[2024-04-06 07:32] LABS: ALKALINE PHOSPHATASE 64 U/L (46-116); BUN 17 mg/dl (9-23); CHLORIDE 102 mmol/L (98-107); CHOLESTEROL 107 mg/dL (<200); LDL CHOLESTEROL 54 mg/dL (9-159); POTASSIUM 3.6 mmol/L (3.4-5.1); SGPT/ALT 19 U/L (5-49); TOTAL PROTEIN 6.8 gm/dL (6.0-8.0); TRIGLYCERIDES 129 mg/dl (<150)
[2024-04-06 08:00] VITALS: BP 150/92
[2024-04-06] MEDS ORDERED: SPIRONOLACTONE 25 MG TAB PO SCH (10:00)
[2024-04-06] MEDS ORDERED: ATORVASTATIN CALCIUM 40 MG TABLET PO SCH (10:00)
[2024-04-06] MEDS ORDERED: BUMETANIDE 1 MG TAB PO SCH (10:00)
[2024-04-06] MEDS ORDERED: SILDENAFIL CITRATE 20 MG TAB PO SCH (10:00)
[2024-04-06] MEDS ORDERED: OLANZapine 5 MG TAB PO SCH (10:00)
[2024-04-06] MEDS ORDERED: Losartan Potassium 100 MG TABLET PO SCH (10:00)
[2024-04-06 12:00] VITALS: BP 136/43
[2024-04-06] MEDS ORDERED: dilTIAZem CD 120 MG CAP PO SCH (13:30)
[2024-04-06 16:00] VITALS: BP 88/60
[2024-04-06 20:00] VITALS: BP 130/62
[2024-04-06] MEDS ORDERED: DILTIAZEM HCL120 M2 PO (20:01)
== END 2024-04-06 20:29 | disposition home or self-care (01) | DRG 309 ==
LOC: ED 11:04 → 4E 13:59 → EDHOLD 13:59 → 4E 21:54
PROVIDERS: Nurse Practitioner Family; Student in an Organized Health Care Education/Training Program; ADMIT Internal Medicine; ATTEND Internal Medicine
DX: I48.0 Paroxysmal atrial fibrillation (principal); I50.22 Chronic systolic (congestive) heart failure; I82.503 Chronic embolism and thrombosis of unspecified deep veins of lower extremity, bilateral; K21.9 Gastro-esophageal reflux disease without esophagitis; I11.0 Hypertensive heart disease with heart failure; R73.9 Hyperglycemia, unspecified; F41.9 Anxiety disorder, unspecified; F32.A Depression, unspecified; E66.9 Obesity, unspecified; E78.5 Hyperlipidemia, unspecified; N40.0 Benign prostatic hyperplasia without lower urinary tract symptoms; Z82.49 Family history of ischemic heart disease and other diseases of the circulatory system; Z86.711 Personal history of pulmonary embolism; Z90.49 Acquired absence of other specified parts of digestive tract; Z83.3 Family history of diabetes mellitus; Z88.0 Allergy status to penicillin; Z88.8 Allergy status to other drugs, medicaments and biological substances; Z79.899 Other long term (current) drug therapy; Z68.37 Body mass index [BMI] 37.0-37.9, adult

== ENCOUNTER → 2024-04-05 | Outpatient (CLI) | payer OTHER ==
[~2024-04-05] MED LIST changes: +ALDACTONE25 MG PO; +ATORVASTATIN CA40 M1 PO; +BUMETANIDE2 MG PO; +DILTIAZEM HCL120 M2 PO; +ELIQUIS5 M1 PO; +LOSARTAN POTAS100 M1 PO; +METOPROLOL SUC100 M1 PO; +OLANZAPINE5 MG PO; +SILDENAFIL CITR50 MG PO
== END | disposition home or self-care (01) ==
LOC: RESCLI 01:28
PROVIDERS: ATTEND Student in an Organized Health Care Education/Training Program
DX: I48.91 Unspecified atrial fibrillation (principal); F33.9 Major depressive disorder, recurrent, unspecified; I27.21 Secondary pulmonary arterial hypertension; K21.9 Gastro-esophageal reflux disease without esophagitis; E78.2 Mixed hyperlipidemia; I26.99 Other pulmonary embolism without acute cor pulmonale; R14.0 Abdominal distension (gaseous); R73.09 Other abnormal glucose; I50.20 Unspecified systolic (congestive) heart failure; Z79.899 Other long term (current) drug therapy; Z98.890 Other specified postprocedural states; Z88.5 Allergy status to narcotic agent

== ENCOUNTER 2024-06-17 14:23 | Emergency (ER) | payer OTHER ==
[~2024-06-17] VITALS: Ht 165.1 cm; Wt 90.7 kg
[~2024-06-17 14:23] MED LIST changes: +ALDACTONE25 MG PO; +ATORVASTATIN CA40 M1 PO; +BUMETANIDE2 MG PO; +DILTIAZEM HCL120 M2 PO; +ELIQUIS5 M1 PO; +LOSARTAN POTAS100 M1 PO; +METOPROLOL SUC100 M1 PO; +OLANZAPINE5 MG PO; +SILDENAFIL CITR50 MG PO
[2024-06-17] MEDS ORDERED: LISSAMINE GREEN 1.5 MG STRIP OP ONE (15:15)
== END 2024-06-17 15:37 | disposition left against medical advice (07) ==
LOC: ED 14:23
DX: T15.91XA Foreign body on external eye, part unspecified, right eye, initial encounter (principal); Z88.0 Allergy status to penicillin; Z88.5 Allergy status to narcotic agent; Z79.899 Other long term (current) drug therapy; Z90.49 Acquired absence of other specified parts of digestive tract; Z98.890 Other specified postprocedural states; I48.91 Unspecified atrial fibrillation; Z53.29 Procedure and treatment not carried out because of patient's decision for other reasons; X58.XXXA Exposure to other specified factors, initial encounter; Y93.89 Activity, other specified; Y92.89 Other specified places as the place of occurrence of the external cause; Y99.8 Other external cause status